=== PATIENT | female | born 1985 | race American Indian/Alaskan Native ===

== ENCOUNTER 2017-03-17 09:48 | Outpatient (CLI) | payer BC ==
--- NOTE | 2017-03-17 11:41 | Fluoroscopy Report ---
Hysterosalpingogram: Prior ectopic for evaluation of infertility. Examination performed on the fluoroscopic table in lithotomy position. Following placement of a speculum the cervix was cleansed with Betadine. A 5 K[place] catheter was successfully placed into the cervix and secured with an air-filled balloon. Injection of water-soluble contrast demonstrated a normal uterine contour with no filling defect noted. There was easy passage of contrast into a normal-appearing left fallopian tube with spillage. There is no visualization of a right fallopian tube. No complications encountered. Impressions: 1. Nonvisualized right fallopian tube which may have been sacrificed at the time of ectopic . 2. Normal uterus and patent left fallopian tube.
== END 2017-03-17 09:49 | disposition home or self-care (01) ==
LOC: FLUORO 09:48
PROVIDERS: ATTEND Obstetrics & Gynecology
DX: N97.9 Female infertility, unspecified (principal); N92.6 Irregular menstruation, unspecified
CPT/HCPCS: 58340; 74740; Q9967